=== PATIENT | female | born 1970 | race Caucasian/White ===

== ENCOUNTER 2017-05-26 12:52 | Day surgery (SDC) | payer OTHER ==
[2017-05-26] VITALS (8 sets, daily range): BP systolic 99–118; BP diastolic 60–77; PULSE 75–92; RESP 15–18; O2SAT 98–99
[~2017-05-26] VITALS: Ht 157.5 cm; Wt 56.7 kg
[~2017-05-26 12:52] MED LIST: Clindamycin Inj 900 MG in IV Premix 1 EACH IV SCH; MDR150V IM; NAPR500T5 PO; RANI75TA21 PO
[2017-05-26] MEDS ORDERED: Ketamine 10 mg/mL 20 mL Inj ONE (12:53)
[2017-05-26] MEDS ORDERED: Propofol 10,000 mCg/mL 20 mL Inj ONE (12:53)
[2017-05-26] MEDS ORDERED: Ondansetron 2 mg/mL 2 mL Inj ONE (12:53)
[2017-05-26] MEDS ORDERED: Dexamethasone 4 mg/mL Inj ONE (12:53)
[2017-05-26] MEDS: Lactated Ringer's 1,000 ML IV SCH ×2 (13:29→14:27)
--- NOTE | 2017-05-26 14:12 | PCM.HPANE ---
Patient Data Surgeon Admitting Provider: Attending Provider:Renny Morton MD Primary Care Physician:[facility] Other Provider:Rupinder Jeffingham Anesthesia Reason for Visit Right Dorsal Wrist Mass, Likely Ganglion Cyst Ht/WT & BMI Height (Feet): 5 Height (Inches): 2 Weight (Kilograms): 56.7 Body Mass Index 23.00 Allergies Coded Allergies: Penicillins (Unverified Allergy, Unknown, trouble breathing, 05/25/17) Past Anesthesia History Anesthesia History: Denies:: Abnormal Airway, Anesthesia Reactions, Difficult Intubation, Fam Anesthesia Reaction Diabetes History Hx Diabetes?: No MRSA MRSA: No Medications Hypertension Medication: No Home Meds Incl Beta Natalie: No Reported Medications Medroxyprogesterone Acetate (Depo-Provera)150 Mg/Ml Sposare306 Mg IM q3mo 05/25/17 Ranitidine (Zantac OTC)75 Mg Mquesb57 Mg PO DAILY #1 PKG Ref 0 05/25/17 Naproxen 500 Mg Tablet.dr500 Mg PO BID PRN For Pain Ref 0 05/25/17 History History of ENT Problems?: No HEENT History: Denies:: Abnormal Airway Difficult Intubation Dysphagia Hearing Problem Sinus Problem Denture Type: None Teeth Condition: Within Normal Limits Missing Teeth Hx of Heart Problems?: No Cardiovascular History: Denies:: AICD Abdominal Aortic Aneurism Atrial Fibrillation Cardiac Surgery Heart Murmur Hypertension Irregular Heartbeat Pacemaker Peripheral Vascular Rheumatic Fever Thrombophlebitis Hx of Respiratory Problem?: No Respiratory History: Denies:: Asthma COPD Emphysema Oxygen Administration Pneumonia Tuberculosis Use of C-PAP Machine Use of Inhalers / NEBS Hx Neurologic Problems?: No Neurological History: Denies:: Alzheimer's Disease CVA Dementia Dizziness Headaches Multiple Sclerosis Parkinson's Disease Seizures TIA Hx of GI Problems?: Yes Hx of Problems?: No Genitourinary History: Denies:: Kidney Stones Urinary Tract Infection Female Hx: Positive for:: Problems with Breasts? (hx of benign cyst, drained ) Denies:: Currently (NEG TEST) Skin History: Denies:: History Skin Disorders? Pressure Ulcers Hx Musculoskeletal Problems?: Yes Musculoskeletal History: Positive for:: Musculoskeletal Trauma (right wrist current admission problem) Denies:: Fibromyalgia Joint Replacement Myasthenia Gravis Osteoarthritis Rheumatoid Arthritis Hx of Psycho/Social Problems?: No Psycho Social History: Denies:: Anxiety Hx Depression (situational when passed, not current ) Hx Surgeries?: Yes (wrist mass) Hx Any Other Health Problems?: Yes Other History: Denies:: Cancer Thyroid Disease History Blood Transfusions: Positive for:: Accept Blood Products? Denies:: Blood Transfusions Hx Diabetes: No Hx Alcohol Use: NoHx Substance Use: NoHave You Smoked inLast 12 mo: Yes (one pack day) Stop/Bang Treated for Sleep Apnea?: No Do You Have a CPAP Machine?: No S-Snoring: Do You Snore Loudly: No T-Tired: feel tired, fatigued: No O-Obsered: Observed not breath: No P-Blood Pressure: treated: No B- Body Mass Index > 35 kg/m2: No A- Age over 50: No N- Neck Large Circumference: No G- Gender Male: No TRISH Total Score: 0 TRISH Risk Assessment: Low Risk, <3 Yes Risk Assessment Category Category 1A: Patient has history of documented sleep apnea, and HAS NOT received any narcotic, sedative or anesthesia administration during this stay. Category 1B: Patient has history of documented sleep apnea, and HAS received any narcotic , sedative or anesthesia administration during this stay Category 2: Patient has SUSPECTED Obstructive Sleep Apnea, and HAS received any narcotic , sedative or anesthesia administration during this stay. Category 3: Patient has SUSPECTED Obstructive Sleep Apnea and HAS NOT received narcotic, sedative or anesthesia administration during this stay. Category 4: Outpatient in Procedural Areas with known sleep apnea or who screen positive for High Risk via the STOP/BANG questionnaire. Exam Exam Vital Signs Vital Signs Date Time Temp Pulse Resp B/P Pulse Ox O2 Delivery O2 Flow Rate FiO2 05/26/17 13:29 36.7 82 16 111/60 98 Room Air General Appearance: Oriented X3 HEENT/AIRWAY: MP 2 Lungs: Normal Air Movement Heart: Regular Rate/Rhythm Meds/Labs/Diagnostics Admission Meds Current Medications Lactated Ringer's (Lr) 1,000 ml @ 120 mls/hr Q8H20M IV Last administered on t 13:29; Start 05/26/17 at 05:00; Stop 05/26/17 at 13:19; Status DC Plan Impression Patient chart reviewed, patient interviewed and anesthestic plan with risks, benefits, and alternatives discussed, and informed consent obtained. ASA Physical Status: ASA2 Mod Systemic Disease Anesthetic Plan: GA Bene/Risks/Altern/Consents: Yes HP Complete Prior to Induction: Yes Sunday Ambriz MD May 26, 2017 14:12
[2017-05-26] MEDS ORDERED: Dexamethasone 4 mg/mL Inj IVPUSH PRN (14:40)
[2017-05-26] MEDS ORDERED: EPHEDrine Sulfate 50 mg/mL Inj IVPUSH PRN (14:40)
[2017-05-26] MEDS ORDERED: Phenylephrine 10,000 mCg/mL Inj IVPUSH PRN (14:40)
[2017-05-26] MEDS ORDERED: Ondansetron 2 mg/mL 2 mL Inj IVPUSH PRN (14:40)
[2017-05-26] MEDS ORDERED: Lactated Ringer's 500 ML IV PRN (14:40)
[2017-05-26] MEDS ORDERED: fentaNYL-PF 50 mCg/mL 2 mL Inj IVPUSH PRN (14:40)
[2017-05-26] MEDS ORDERED: Lactated Ringer's 1,000 ML IV SCH (14:40)
[2017-05-26] MEDS ORDERED: HYDROmorphone 1 mg/mL Inj IVPUSH PRN (14:40)
[2017-05-26] MEDS ORDERED: MetoCLOpramide 5 mg/mL 2 mL Inj IVPUSH PRN (14:40)
[2017-05-26] MEDS ORDERED: Bupivacaine-MPF 0.5% 30 mL Inj INFILTRATE ONE (14:51)
[2017-05-26] MEDS ORDERED: HYDROcodone-APAP 5-325 mg Tablet PO PRN (15:15)
--- NOTE | 2017-05-27 08:15 | PCM.ANEP1 ---
Post Anesthesia PACU Phase 1 Assessment Anesthetic Administered: GA Level of Alertness: Awake, talking Pain: No Nausea or Vomiting: No CV Function & Hydration Stable: Yes Airway Device: Lungs: Normal Air Movement PACU Phase 2 Assessment Patient Instructions Provided: N/A Sunday Ambriz MD May 27, 2017 08:15
--- NOTE | 2017-05-31 15:11 | PATH ---
SURGICAL PATHOLOGY Attending Physician:Renny Morton CASE STATUS: Signed Out PATIENT NAME: JOSE STANLEY PID: [id number] : 1970 DATE COLLECTED:05/26/2017 00:00 SPECIMEN: Mass, NOS CLINICAL HISTORY: RIGHT DORSAL WRIST MASS 1). 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 The specimen is entirely submitted in one cassette. 05/27/2017 [facility] MICRO DESCRIPTION: Sections are of tissue stated to be from a right dorsal wrist mass. The tissue appears to be fascia and portions of it are infiltrated by streaming benign-appearing spindle cells in a pattern suggesting fibromatosis. Immunohistochemistry is performed with the following results: Beta-catenin: Spindle cells positive. Smooth muscle actin: Rare spindle cell positive. S100: Spindle cells negative. Desmin: Spindle cells negative. INTERPRETATION: This immunophenotype is quite consistent with a light microscopic impression of fascial fibromatosis. ICD-9 CODES: CPT CODES: 1: 83102, 55846, 43799, 35028, 41211 Electronically Signed Out Markus Millard MD [facility] Pathology [facility] [address], [place] [address] Technical component performed at [facility], [facility] [address], [place], [address]
--- NOTE | 2017-06-02 09:00 | OP ---
[address] [address] OPERATIVE REPORT PATIENT: JOSE STANLEY : 1970 MR#: [id number] ADMIT: 05/26/2017 JOB ID: [id number] DATE OF SURGERY: 05/26/2017 PREOPERATIVE DIAGNOSIS(ES): Right dorsal wrist mass. POSTOPERATIVE DIAGNOSIS(ES): Right dorsal wrist mass, likely a hematoma. PROCEDURE: Excision of deep left dorsal wrist mass, 1 cm. SURGEON: Renny Morton MD MANAGER OF IT: None. ANESTHESIA: General. COMPLICATIONS: None apparent. ESTIMATED BLOOD LOSS: Minimal. INDICATIONS FOR PROCEDURE: This is a 47-year-old, female patient, who developed a tender right dorsal wrist mass 2-1/2 weeks ago. The patient has a history of excision of some type of tumor from this area. At this point, excision of the mass is indicated for tissue diagnosis and for symptom relief. PROCEDURE AND FINDINGS: The patient was identified in the preoperative area. Surgical site was marked. The patient was then taken back to the operating room and placed supine on the operating table. Appropriate time-outs were taken. General anesthesia was induced smoothly. The patient was then prepped and draped in the usual sterile manner. Local anesthesia was then infiltrated in the radial sensory nerve block. The patient's right upper extremity was then exsanguinated and tourniquet inflated to 250 mmHg. A chevron incision was then made directly over the mass with a #15 blade. I then deepened the incision down into the subcutaneous tissue. There was no obvious abnormality in this area. I can palpate a mass beneath the subcutaneous tissue. I then bluntly dissected down to the underlying extensor retinaculum. It was noted that the patient has a purplish mass beneath the retinaculum. I made a small incision through the portion of the retinaculum. The patient appears to have a small blood clot in close association with the extensor pollicis longus tendon. I attempted to dissect this mass free from the surrounding soft tissue. In this process, I entered through the capsule and the clot was removed. I then excised any abnormal-appearing soft tissue in this area and passed off to Pathology as a specimen. Tourniquet was released and hemostasis was obtained with electrocautery. The incision was reapproximated using a layer of 3-0 Monocryl deep dermal suture, followed by 4-0 Monocryl running subcuticular suture. The patient tolerated the procedure well. Needle count, sponge count, instrument counts were correct at the end of the procedure. The patient was extubated and transported to recovery in stable condition.
== END 2017-05-26 23:59 | disposition home or self-care (01) ==
LOC: SAS 12:52
PROVIDERS: ATTEND Plastic Surgery
DX: M72.8 Other fibroblastic disorders (principal); F17.210 Nicotine dependence, cigarettes, uncomplicated
CPT/HCPCS: 25110; J1100; J2250; J2405; J3490; J7120